=== PATIENT | female | born 1940 | race Caucasian/White ===

== ENCOUNTER 2021-09-06 09:52 | Day surgery (SDC) | payer OTHER ==
[~2021-09-06] VITALS: Ht 147.3 cm; Wt 52.0 kg
[2021-09-06] MEDS ORDERED: ATOR20 PO (10:28)
[2021-09-06] MEDS ORDERED: LEVSOD25 PO (10:30)
[2021-09-06] MEDS ORDERED: LISI20 PO (10:30)
[2021-09-06] MEDS ORDERED: CENTRUM SILVER1 EAC2 PO (10:31)
[2021-09-06] MEDS ORDERED: BUPR75 PO (10:31)
[2021-09-06] MEDS ORDERED: GINKGO60 MG PO (10:31)
[2021-09-06] MEDS ORDERED: VITAMIN D5000 UNIT PO (10:32)
[2021-09-06] MEDS ORDERED: DECADRON4 M1 PO (10:34)
== END 2021-09-06 12:15 | disposition home or self-care (01) ==
LOC: ORSCSDS 09:52
PROVIDERS: Student in an Organized Health Care Education/Training Program
PROC: 0D758ZZ Dilation of Esophagus, Via Natural or Artificial Opening Endoscopic (ICD-10-PCS; principal; 2021-09-06 11:15)
DX: R13.10 Dysphagia, unspecified (principal); K44.9 Diaphragmatic hernia without obstruction or gangrene; I10 Essential (primary) hypertension; E03.9 Hypothyroidism, unspecified; R63.4 Abnormal weight loss; Z86.73 Personal history of transient ischemic attack (TIA), and cerebral infarction without residual deficits; Z79.899 Other long term (current) drug therapy
CPT/HCPCS: J2704; J7120

== ENCOUNTER 2022-11-24 10:47 | Emergency (ER) | payer OTHER ==
[~2022-11-24] VITALS: Ht 144.8 cm; Wt 47.2 kg
[~2022-11-24 10:47] MED LIST: ATOR20 PO; BUPR75 PO; CENTRUM SILVER1 EAC2 PO; DECADRON4 M1 PO; GINKGO60 MG PO; LEVSOD25 PO; LISI20 PO; VITAMIN D5000 UNIT PO
[2022-11-24 11:10] LABS: BASOPHILS ABSOLUTE AUTO 0.09 K/mm3 (0.00-0.23); BASOPHILS PERCENT AUTO 1 % (0-2); EOSINOPHILS ABSOLUTE AUTO 0.47 K/mm3 (0.00-0.68); EOSINOPHILS PERCENT AUTO 5 % (0-6); Hematocrit 36.7 % (33.0-51.0); Hemoglobin 12.6 g/dL (11.5-16.0); IMMATURE GRAN ABSOLUTE AUTO 0.02 K/mm3 (0.00-0.10); IMMATURE GRAN PERCENT AUTO 0 % (0-1); LYMPHOCYTES ABSOLUTE AUTO 2.36 K/mm3 (0.84-5.20); LYMPHOCYTES PERCENT AUTO 27 % (21-46); MONOCYTES ABSOLUTE AUTO 0.79 K/mm3 (0.16-1.47); MONOCYTES PERCENT AUTO 9 % (4-13); Mean Corpuscular HGB 31.6 pg (26.0-34.0); Mean Corpuscular HGB Conc 34.3 g/dL (31.5-36.5); Mean Corpuscular Volume 92 fL (80-100); Mean Platelet Volume 9.7 fL (9.1-12.4); NEUTROPHILS ABSOLUTE AUTO 5.15 K/mm3 (1.96-9.15); NEUTROPHILS PERCENT AUTO 58 % (41-73); Platelet Count 325 K/mm3 (150-400); RDW Coefficient Variation 12.8 % (11.7-14.2); RDW Standard Deviation 42.9 fL (35.1-46.3); Red Blood Cell Count 3.99 M/mm3 (3.80-5.20); White Blood Cell Count 8.88 K/mm3 (4.00-11.30)
[2022-11-24 11:26] LABS: Albumin, Blood 3.6 g/dL (3.4-5.0); Albumin/Globulin Ratio 0.9 (0.8-1.8); Bilirubin, Total 0.3 mg/dL (0.1-1.0); Bun/Creatinine Ratio 17.7 (12.0-20.0); Calcium, Blood 8.9 mg/dL (8.5-10.1); Creatinine, Blood 0.68 mg/dL (0.40-1.00); Globulin, Blood 3.8 g/dL (2.2-4.0); Potassium, Blood 4.2 mmol/L (3.5-5.5); Total Protein, Blood 7.4 g/dL (6.4-8.2)
[2022-11-24 12:45] VITALS: BP 109/57
== END 2022-11-24 12:55 | disposition home or self-care (01) ==
LOC: ER 10:47
PROVIDERS: Emergency Medicine
DX: I47.1 Supraventricular tachycardia (principal); I10 Essential (primary) hypertension; Z86.73 Personal history of transient ischemic attack (TIA), and cerebral infarction without residual deficits; Z88.5 Allergy status to narcotic agent; Z88.8 Allergy status to other drugs, medicaments and biological substances; Z79.890 Hormone replacement therapy; Z79.899 Other long term (current) drug therapy
CPT/HCPCS: 71045; 80053; 85025; 93005; 93010; 99285-25; J7030